=== PATIENT | male | born 1955 | race Caucasian/White ===

== ENCOUNTER 2016-08-16 17:48 | Observation (INO) | payer OTHER ==
--- NOTE | 2016-08-16 18:15 | EDPHY ---
H & P Smoking Status: Never smoked Time Seen by Provider: 08/16/16 18:14 HPI/ROS: CHIEF COMPLAINT: trimmer meat injury HISTORY OF PRESENT ILLNESS: 61-year-old [id number] male with out-of- date tetanus sustained accidental injury to his left 2nd 3rd 4th digit palmar aspect when he accidentally triggered his trimmer meat. most significant injury is to his left 4th digit at the DIP joint where he has a near avulsion. He has decreased sensation distally. He is also complaining of laceration to his 2nd 3rd digit. He denies other injuries. This was accidental. Tetanus out -of-date Last oral intake was 2:00 p.m. today PRIMARY CARE PROVIDER: REVIEW OF SYSTEMS: A ten point review of systems was performed and is negative with the exception of the items mentioned in the HPI PHYSICAL EXAM (Prior to examination, patient consented to physical exam, hands were washed and my usual and customary physical exam procedures followed) 1) GENERAL: Well-developed, well-nourished, alert and oriented. Appears anxious. 2) HEAD: Normocephalic, atraumatic 3) HEENT: Sclera anicteric. 4) NECK: Full range of motion, no meningeal signs. 5) LUNGS: Clear auscultation bilaterally, no wheezes, no rhonchi, no retractions. 6) HEART: Regular rate and rhythm, no murmur, no heave, no gallop. 7) ABDOMEN: No guarding, no rebound, no focal tenderness, 8) MUSCULOSKELETAL: MUSCULOSKELETAL: Left 2nd digit: Superficial laceration to the middle phalanx with FDP and FDS function intact. Full sensation distally brisk capillary refill distally. Left 3rd digit: Laceration measuring 2.5 cm to the middle phalanx with no FDP function and decreased sensation Left 4th digit: Laceration/incomplete amputation measuring approximately 80% at the DIP joint which appears to be intra-articular. No FDP function and decreased sensation distally. The distal portion has positive flow. 9) BACK: no visual or palpable abnormality. 10) SKIN: multiple lacerations to the left hand . 11) Psychiatric: Patient is oriented X 3, there is no agitation. DIFFERENTIAL DIAGNOSIS: in no particular include but limited to amputation, laceration, flexor tendon laceration (Josep Washington) Constitutional: Initial Vital Signs Temperature (C) 36.5 C 08/16/16 17:58 Heart Rate 114 H 08/16/16 17:58 Respiratory Rate 16 08/16/16 17:58 Blood Pressure 131/81 H 08/16/16 17:58 O2 Sat (%) 98 08/16/16 17:58 O2 Delivery Mode Room Air Allergies/Adverse Reactions: No Known Allergies Allergy (Unverified 08/16/16 17:57) Home Medications: Medication Instructions Recorded NK [No Known Home Meds] 08/16/16 MDM/Departure - MDM Imaging Results: Imaging Impressions Hand X-Ray 08/16/16 18:17 Impression: Soft tissue laceration with mildly comminuted fracture, distal phalanx, left fourth finger at the DIP joint. Underlying degenerative changes. Images reviewed by myself (Josep Washington) Medications Given: Discontinued Medications Cephalexin HCl (Keflex) 500 mg PO EDNOW ONE PRN Reason: Protocol Stop: 08/16/16 18:24 Last Admin: 08/16/16 18:33 Dose: 500 mg Diphtheria/Tetanus/Acell Pertussis (Boostrix) 0.5 ml IM .ONCE ONE Stop: 08/16/16 18:24 Last Admin: 08/16/16 18:34 Dose: 0.5 ml ED Course/Re-evaluation: PHYSICIAN DOCUMENTATION: The patient was evaluated and managed by the Physician Show Horse Driver and myself. I have reviewed the chart and agree with the findings and plan of care as documented. In addition, I examined the patient myself. History confirmed as trimmer meat injury. Physical findings as follows: Almost complete amputation of the distal phalanx of the ring finger. Hand surgery consultation Emergency Department for operative treatment. I am the secondary supervising physician. (Daniele Rider) 8:37 p.m.: Phone consultation with on-call hand surgery Dr. Chago Phelan who will come to the ER to evaluate patient possibly take patient to the operating room this evening (Josep Washington) - Depart Disposition: To OP Cath/Surgery Clinical Impression: incomplete amputation left 4th digit, Left 2nd digit laceration, Left 3rd digit laceration Condition: Fair
[2016-08-16] MEDS ORDERED: CEPHALEXIN 500 MG CAP PO ONE (18:23)
[2016-08-16] MEDS ORDERED: TDAP ADULT 0.5 ML INJ (BOOSTRIX) IM ONE (18:23)
[2016-08-16 21:31] LABS: % IMMATURE GRANULYOCYTES 0.4 % (0.0-1.1); ABSOLUTE IMMATURE GRANULOCYTES 0.03 10^3/uL (0.00-0.10); ADD DIFF? NO; ADD MORPH? NO; ADD SCAN? NO; ATYPICAL LYMPHOCYTE FLAG 0 (0-99); FRAGMENT RBC FLAG 0 (0-99); HEMATOCRIT 41.7 % (40.0-51.0); HEMOGLOBIN 13.7 g/dL (13.7-17.5); LEFT SHIFT FLG 0 (0-99); LIPEMIA HEMOLYSIS FLAG 80 (0-99); MEAN CELL HEMOGLOBIN 31.1 pg (27.9-34.1); MEAN CELL HEMOGLOBIN CONCENTR. 32.9 g/dL (32.4-36.7); MEAN CELL VOLUME 94.6 fL (81.5-99.8); MEAN PLATELET VOLUME 9.1 fL (8.7-11.7); PLATELET CLUMPS FLAG 0 (0-99); PLATELET COUNT 341 10^3/uL (150-400); RED BLOOD CELL COUNT 4.41 10^6/uL (4.40-6.38); RED CELL DISTRIBUTION WIDTH 13.2 % (11.5-15.2)
[2016-08-16 21:45] LABS: ANION GAP 9 mEq/L (8-16); CALCIUM 8.9 mg/dL (8.5-10.4); CARBON DIOXIDE 23 mEq/l (22-31); CHLORIDE 111 mEq/L (97-110); CREATININE 0.9 mg/dL (0.7-1.3); GLOMERULAR FILTRATION RATE > 60; GLUCOSE 103 mg/dL (70-100); INR 0.9 (0.83-1.16); POTASSIUM 3.7 mEq/L (3.5-5.2); SODIUM 143 mEq/L (134-144)
[2016-08-16 21:46] LABS: APTT 27.1 SEC (23.0-38.0)
--- NOTE | 2016-08-16 22:01 | GCON ---
[f rep st] CONSULTATION DATE OF CONSULTATION: 08/16/2016 ADMITTING DIAGNOSES: 1. Left hand multiple lacerations, with near-complete amputation, 4th finger, at level of distal in terphalangeal joint, with open fracture, base of distal phalanx at insertion point of flexor digitor um profundus tendon. 2. Open laceration to left 3rd finger at the level of the middle phalanx, with inability to flex th e distal interphalangeal joint, indicative of laceration of left flexor digitorum profundus to 3rd f jayson. 3. Laceration, left 2nd finger, with questionable digital nerve injury to the radial border. 4. 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 Somehow he got his hand caught in the screen cutter and trimmer. He sustained multiple lacerations with the abo ve findings. The patient is seen in the emergency room where x-rays were requested. He does have a fracture of the base of the distal phalanx of the 4th finger at the level of the insertion of the f lexor digitorum profundus tendon. ALLERGIES: None. MEDICATIONS: Aspirin. REVIEW OF SYSTEMS: Negative for diabetes, asthma, respiratory or heart disease, and associated symp tomatology. PAST SURGICAL HISTORY: Repair of a tongue laceration. SOCIAL HISTORY: Resides alone. PHYSICAL EXAM: GENERAL APPEARANCE: Patient alert, oriented, cooperative with exam. HEENT: Wears eyeglasses, otherwise normal. CHEST: Clear to auscultation. ABDOMEN: Exam nontender. CARDIAC: Regular rate and rhythm. Normal S1, S2. No gallop or murmurs. EXTREMITIES: Examination of the le ft hand reveals lack of sensation in the 4th fingertip, hypesthesia in the 3rd fingertip, reasonable sensation in the 2nd fingertip. He is unable to flex the DIP joint of the 3rd fingertip. There is a laceration through the middle phalanx. He has near-total amputation of the 4th fingertip, with i nvolvement of bone, i.e., volar plate and distal phalanx. There is weakness to flexion of the 4th f ingertip. He is able to flex the 3rd fingertip, and has good capillary flow. There is reasonable c apillary flow on the 3rd fingertip, but slight duskiness in the 4th fingertip. ASSESSMENT: Multiple finger lacerations, with involvement of flexor digitorum profundus tendons to the 3rd finger, likely the 4th finger, with an avulsion fracture off the base of the distal phalanx of the 4th finger, and near-total amputation of the 4th finger. The patient is expressing a need to try to save the 4th finger, despite his lack of sensation. This will be determined by evaluation i n the OR as to whether he has a single neurovascular bundle that is still functional at that level o f the laceration. If not, it may require amputation. The FDP tendon will be repaired to the 3rd fi nger. The lacerations will be repaired to all fingers. The patient was given tetanus in the emerge ncy room, and 2 g of Ancef administered IV. Consent was obtained, and he understands the risk of po ssible need for amputation. He understands the risk of loss of motion, stiffness, and loss of feeli ng in the fingertips. Understanding these risks, he has elected to proceed with the surgery. The r [facility] surgical risks were also discussed. /[id number]/MODL
[2016-08-16] MEDS ORDERED: BUPIVACAINE 0.25% 30 ML SDV ONE (22:43)
[2016-08-16] MEDS ORDERED: MIDAZOLAM 2 MG/2 ML VIAL ONE (22:46)
[2016-08-16] MEDS ORDERED: PROPOFOL 200 MG/20 ML VIAL ONE (22:47)
[2016-08-16] MEDS ORDERED: fentaNYL 100 MCG/2 ML INJ ONE ×2 (22:47→23:49)
[2016-08-16] MEDS ORDERED: DEXAMETHASONE 4 MG/ML VIAL ONE ×2 (22:47)
[2016-08-16] MEDS ORDERED: LIDOCAINE 2% JELLY 5 ML TUBE ONE (22:47)
[2016-08-16] MEDS ORDERED: LIDOCAINE 2% 5 ML SDV ONE (22:47)
[2016-08-16] MEDS ORDERED: ONDANSETRON 4 MG/2 ML VIAL ONE (22:48)
[2016-08-16] MEDS ORDERED: ceFAZolin 1 GM VIAL ONE ×2 (23:02)
[2016-08-16] MEDS ORDERED: POLYMYXIN B SULFATE 500,000 UNIT/10 ML SYR IRR ONE (23:09)
[2016-08-16] MEDS ORDERED: BACITRACIN 50,000 UNITS/10 ML SYR IRR ONE (23:09)
[2016-08-17] MEDS ORDERED: CYCLOBENZAPRINE 10 MG TAB PO PRN (00:57)
[2016-08-17] MEDS ORDERED: diphenhydrAMINE 25 MG CAP PO PRN (00:57)
[2016-08-17] MEDS ORDERED: oxyCODONE IR 5 MG TAB PO PRN (00:57)
[2016-08-17] MEDS ORDERED: TEMAZEPAM 15 MG CAP PO PRN (00:57)
[2016-08-17] MEDS ORDERED: DIPHENOXYLATE/ATROPINE LOMOTIL 1 TAB PO PRN (00:57)
[2016-08-17] MEDS ORDERED: ONDANSETRON DISINTEGRATING 4 MG TAB PO PRN (00:57)
[2016-08-17] MEDS ORDERED: PROMETHAZINE HCL 25 MG SUPPR PR PRN (00:57)
[2016-08-17] MEDS ORDERED: ONDANSETRON 4 MG/2 ML VIAL IVP PRN (00:57)
[2016-08-17] MEDS ORDERED: METOCLOPRAMIDE 10 MG/2 ML VIAL IVP PRN (00:57)
[2016-08-17] MEDS ORDERED: PROMETHAZINE HCL 25 MG/ML INJ IVP PRN (00:57)
[2016-08-17] MEDS ORDERED: LR 1,000 ML IV SCH (01:00)
[2016-08-17] MEDS: ceFAZolin 2 GM/DEXTROSE 100 ML IV SCH ×2 (05:24→11:38)
[2016-08-17] MEDS: ACETAMINOPHEN 325 MG TAB PO SCH ×2 (05:25→11:41)
[2016-08-17 05:29] LABS: HEMATOCRIT 37.9 % (40.0-51.0); HEMOGLOBIN 12.5 g/dL (13.7-17.5)
--- NOTE | 2016-08-17 06:10 | GOP ---
[f rep st] OPERATIVE REPORT DATE OF OPERATION: 08/16/2016 SURGEON: Chago Phelan MD ANESTHESIA: General. PREOPERATIVE DIAGNOSIS: 1. 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 2. Macerated lacerations with flexor digitorum profundus tendon lacerations to the 2nd and 3rd fing ers. POSTOPERATIVE DIAGNOSIS: 1. 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 2. Macerated lacerations with flexor digitorum profundus tendon lacerations to the 2nd and 3rd fing ers. PROCEDURE PERFORMED: 1. Completion of amputation, left 4th finger with shortening of distal aspect of middle phalanx. 2. Repair of flexor digitorum profundus tendon to the 2nd finger. 3. Repair of flexor digitorum profundus tendons to the 3rd finger. FINDINGS: DESCRIPTION OF PROCEDURE: Patient was taken to the operative room, administered general anesthesia and placed in a supine position. The left upper extremity was prepped and draped in normal sterile fashion. Our attention was directed to the 4th finger where there is a near amputation. We examine d the distal interphalangeal articulation, and there was missing bone from the base of the distal ph alanx. The digital nerves and arteries were cut bilaterally. The patient's finger tip had very poo r flow. The decision was made because of the insensate fingertip without a distal interphalangeal a rticulation that we should proceed with amputation. This was performed at the level of the IP joint after shortening down the middle phalanx. We got a flap based both volarly and dorsally to cover i t. We had to resect part of the remaining nail bed. Thorough lavage was performed with saline with bacitracin and polymyxin solution. The skin was then closed with a 3-0 nylon suture. Attention wa s then directed to the 2nd finger. There was a macerated laceration with 2 transverse segments. We had to extend this proximally and distally to get exposure of the lacerated FDP tendon. This was e xposed initially distally and then proximally. We were able to retrieve the proximal tendon and get end-to-end apposition to the small remaining stump on the base of the distal phalanx. This was per formed with a 4-0 FiberWire suture. Irrigation was performed copiously with normal saline. The mac erated laceration was then closed with a 5-0 nylon suture. The middle finger was then addressed. A gain, there was a macerated laceration. The laceration was extended proximally and distally to give exposure of the FDP tendon. This was retracted proximal to the A4 marvin. We made an incision lynn r the cruciate marvin. We retrieved the tendon. It was readied for the #4-0 FiberWire suture. Thi s was then brought underneath the A4 marvin. We were able to get into end-to-end apposition with th e tendon with a Boo-type stitch pattern. Irrigation was performed with normal saline. Closure was performed of the dermis with a 5-0 nylon suture. Sterile compression was applied. A dorsal blo cking splint was applied. The patient tolerated the procedure well and was transferred back to [facility] in stable condition. There were no operative complications. COMPLICATIONS: None. /[id number]/MODL
--- NOTE | 2016-08-17 10:37 | SOAPPROG ---
SOAP Progress Note Assessment/Plan: Assessment/Plan: s/p amputation left 4th finger with shortening of distal aspect of middle phalanx; repair of flexor digitorum profundus tendon to the 2nd and rd fingers - Continue antibiotics - Continue pain management if needed- currently taking Tylenol - Dressing change today - NWB LUE - Continue ice and elevation for pain and swelling - Follow-up in office with Dr. Phelan 08/21/2016, for re-evaluation Plan: 08/17/16 10:17 Subjective: Pt states he is feeling well. Does have numbness in the 2nd, 3rd and 4th phalanges. Pt denies fever, chills, chest pain, SOB, abdominal pain, N/V/D, and calf pain. Objective: Vital Signs Temp Pulse Resp BP Pulse Ox 36.9 C 78 15 119/72 98 08/17/16 07:44 08/17/16 07:44 08/17/16 03:52 08/17/16 07:44 08/17/16 07:44 Laboratory Results 08/17/16 04:39 08/16/16 21:21 08/16/16 08/17/16 08/18/16 05:59 05:59 05:59 Intake Total 1059 Output Total 30 Balance 1029 PT 12.0 SEC (12.0-15.0) 08/16/16 21:21 INR 0.90 (0.83-1.16) 08/16/16 21:21 Physical Exam - Physical Exam General Appearance: alert, no apparent distress Skin: normal color, warm/dry, other (Sutures intact left 2nd, 3rd, and 4th fingers without any erythema, calor, or drainage. ) Extremities: normal capillary refill, swelling (mild swelling left 2nd, 3rd, and 4th fingers), other (Radial pulse 2+, splint intact LUE), No pedal edema, No calf tenderness, No Lamar's sign Neuro/Psych: alert, normal mood/affect, oriented x 3, sensory deficit ICD10 Worksheet Patient Problems: Problems Problem Status Onset Laceration of left hand with tendon involvement including fingers Acute - ICD10 Problem Qualifiers (1) Laceration of left hand with tendon involvement including fingers Qualifiers: Encounter type: E
[2016-08-17 12:23] VITALS: BP 106/73; PULSE 70; RESP 14; TEMP 97.3; O2SAT 92
[2016-08-17] MEDS ORDERED: FAMOTIDINE 20 MG TAB PO SCH (21:00)
--- NOTE | 2016-08-18 10:55 | PDDCSUM ---
Discharge Summary Discharge Summary: 61y/o M presented to the ED via private vehicle after getting his left hand caught in a casket trimmer. Pt was taken to the OR for completion of amputation to the left 4th finger with shortening and flexor digitorum profundus tendon repair of the 2nd and 3rd fingers. Pt received IV Ancef prior to surgery and was discharged on Keflex x 10 days. Pain was well-controlled with tylenol. Hospital course was otherwise uneventful.
== END 2016-08-17 13:40 | disposition home or self-care (01) ==
LOC: INTOOBSV 20:41 → OBSVTOIN 20:41 → F3N 08-17 01:33
PROVIDERS: ADMIT Orthopaedic Surgery Sports Medicine; ATTEND Orthopaedic Surgery Sports Medicine
PROC: 0LS80ZZ Reposition Left Hand Tendon, Open Approach (ICD-10-PCS; principal; 2016-08-16 22:00)
PROC: 0X6T0Z2 Detachment at Left Ring Finger, Mid, Open Approach (ICD-10-PCS; principal; 2016-08-16 22:00)
DX: S68.625A Partial traumatic transphalangeal amputation of left ring finger, initial encounter (principal); S56.124A Laceration of flexor muscle, fascia and tendon of left middle finger at forearm level, initial encounter; W29.3XXA Contact with powered garden and outdoor hand tools and machinery, initial encounter; Y93.H2 Activity, gardening and landscaping; Y92.007 Garden or yard of unspecified non-institutional (private) residence as the place of occurrence of the external cause; Z23 Encounter for immunization
CPT/HCPCS: 26370; 26952; 71020; 73130; 97161; 97165; G0378; J0690; J1100; J2250; J2405; J2704; J3010